=== PATIENT | male | born 1995 | race Caucasian/White ===

== ENCOUNTER 2017-04-29 01:34 | Inpatient (IN) | payer OTHER ==
[~2017-04-29] VITALS: Ht 180.3 cm; Wt 95.0 kg
[2017-04-29 03:22] LABS: MEAN CORPUSCULAR HEMOGLOBIN 30.8 pg (27.0-33.0); MEAN CORPUSCULAR HGB CONC 34.8 g/dl (32.0-36.5); MEAN CORPUSCULAR VOLUME 88.6 fl (80.0-96.0); RED CELL DISTRIBUTION WIDTH 11.9 % (11.5-14.5); WHITE BLOOD COUNT 11.5 10^3/uL (4.0-10.0)
[2017-04-29 03:55] LABS: ALBUMIN 4.4 GM/DL (3.2-5.2); ALBUMIN/GLOBULIN RATIO 1.19 (1.00-1.93); ALKALINE PHOSPHATASE 67 U/L (45-117); ALT/SGPT 28 U/L (12-78); ANION GAP 7 MEQ/L (8-16); AST/SGOT 18 U/L (15-37); BILIRUBIN,DIRECT 0.4 MG/DL (0.0-0.2); BLOOD UREA NITROGEN 12 MG/DL (7-18); CALCIUM LEVEL 9.1 MG/DL (8.5-10.1); CARBON DIOXIDE LEVEL 25 MEQ/L (21-32); CHLORIDE LEVEL 106 MEQ/L (98-107); CREATININE FOR GFR 1.07 MG/DL (0.70-1.30); GLOMERULAR FILTRATION RATE > 60.0 (>60); GLUCOSE, FASTING 79 MG/DL (70-105); POTASSIUM SERUM 3.6 MEQ/L (3.5-5.1); SODIUM LEVEL 138 MEQ/L (136-145); TOTAL PROTEIN 8.1 GM/DL (6.4-8.2)
[2017-04-29] MEDS ORDERED: traZODone 50 MG TAB PO PRN (04:45)
[2017-04-29] MEDS ORDERED: MAALOX 30 ML SUSP *UDC PO PRN (04:45)
[2017-04-29] MEDS ORDERED: MOM 30ML SUSPENSION UDC PO PRN (04:45)
[2017-04-29] MEDS ORDERED: ACETAMINOPHEN TAB 650MG DOSE (2X325MG) PO PRN (04:45)
[2017-04-29 04:46] LABS: METHADONE URINE NEGATIVE (NEGATIVE)
[2017-04-29 05:08] VITALS: BP 154/81
--- NOTE | 2017-04-29 09:00 | HPEPDOC ---
[facility] Medical History & Physical Date of Admission Apr 28, 2017 History and Physical PCP: [facility] ATTENDING: Dr. Henrique Lopez HPI:21yoM admitted to [facility] for unspecified depressive disorder, being medically examined today. No acute medical complaints today. Denies any fevers, chills, weakness, fatigue, FORMAN, CP, SOB, cough, palpitations, abdominal pain, N/V/D or changes in bowel or bladder habits. 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 ROS: As noted in HPI, otherwise 11pt ROS of systems reviewed and unremarkable. PE: GEN: 21 yoM, appears stated age. Well-nourished, well developed. No acute distress. Alert and oriented x 3. Flat affect, slow to answer questions, avoids eye contact. HEENT: Normocephalic, atraumatic. Pupils are equal, round, and reactive to light. Extraocular movements are intact. No nystagmus appreciated. Sclera are nonicteric. Conjunctiva without injection. Nose midline. Nasal turbinates without bogginess. EACs both patent BL. TMs both visualized and marr with good cone of light, no bulging or erythema. No facial asymmetry. Moist mucous membranes. Dentition fair. Pharynx pink and moist, no cobblestoning. Neck supple , trachea midline. No lymphadenopathy or thyromegaly appreciated. CHEST: Regular rate and rhythm, +S1, +S2 LUNGS: Clear to auscultation bilaterally. No wheezes, rales, or rhonchi. Breathing appears symmetric and easy. Patient is speaking in full sentences. No accessory muscle use. ABD: Flat, soft, non-tender, non-distended. +Bowel sounds throughout. No rebound or guarding. Healed appendectomy scar is noted. No costovertebral angle tenderness. EXT: Pulses 2+ bilaterally dorsalis pedis and radial. No lower extremity edema appreciated. SKIN: [place], dry, warm. Capillary refill <2sec. No rashes. NEURO: Alert and oriented x 3. Cranial nerves III-XII are intact. No focal deficits appreciated. EKG: pending A&P: 21yoM admitted to [facility] for unspecified depressive disorder 1. Psych. Plan per Psychiatry. Obtain baseline EKG to assure the safety of psychiatric medications as they can prolong the QT interval. 2. Leukocytosis. Patient is afebrile. Asymptomatic. Recheck CBC in a.m. 3. Follow up with PCP on discharge. 4. Staff member Alvaro present throughout exam. Vital Signs Vital Signs Date Time Temp Pulse Resp B/P (MAP) Pulse Ox O2 Delivery O2 Flow Rate FiO2 04/29/17 05:08 97.2 50 18 154/81 (105) 04/29/17 04:50 97 Room Air Laboratory Data Labs 24H Laboratory Tests 2 04/29/17 03:15: Nucleated Red Blood Cells % (auto) 0.0, Anion Gap 7L, Glomerular Filtration Rate > 60.0, Calcium Level 9.1, Aspartate Amino Transf (AST/SGOT) 18, Alanine Aminotransferase (ALT/SGPT) 28, Alkaline Phosphatase 67, Total Bilirubin 2.0H, Direct Bilirubin 0.4H, Total Protein 8.1, Albumin 4.4, Albumin/Globulin Ratio 1.19, Thyroid Stimulating Hormone (TSH) 1.200, Salicylates Level < 1.7L, Acetaminophen Level < 2.0L, Ethyl Alcohol Level < 0.003 04/29/17 04:06: Urine Amphetamines Screen NEGATIVE, Urine Benzodiazepines Screen NEGATIVE, Urine Opiates Screen NEGATIVE, Urine Methadone Screen NEGATIVE, Urine Barbiturates Screen NEGATIVE, Urine Phencyclidine Screen NEGATIVE, Urine Cocaine Metabolite Screen NEGATIVE, Urine Cannabinoids Screen NEGATIVE CBC/BMP Laboratory Tests 04/29/17 03:15 Red Blood Count 5.77, Mean Corpuscular Volume 88.6, Mean Corpuscular Hemoglobin 30.8, Mean Corpuscular Hemoglobin Concent 34.8, Red Cell Distribution Width 11.9 Home Medications No Active Prescriptions or Reported Meds Allergies Coded Allergies: No Known Allergies (Unverified , 04/29/17) Ivory Moran Apr 29, 2017 08:59
--- NOTE | 2017-04-29 09:26 | MHHPEPDOC ---
[facility] History & Physical History and Physical DATE OF ADMISSION: Apr 29, 2017 at 04:44 LEGAL STATUS AT ADMISSION: 9.39 CHIEF COMPLAINT: "I'm at my breaking point". 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 No combat exposure. Having SI after breakup with GF of a 6 year relationship. Also stressed by fiances, car and recent of Grandmother. Made a suicide attempt in by overdosing but was stopped by a friend. PSYCHIATRIC REVIEW OF SYSTEMS: Affective: tired Anxiety: mild Trauma: denies all. Psychosis: no symptoms illicited or reported Personally: cooperative PAST PSYCHIATRIC HISTORY: Prior Psychiatric Disorder: none Outpatient Treatment: none Suicidal/Self injurious: attempted suicide by over dose in HS but never sought help or reported it. A friend stopped him. Psychotropic Medication History: none. ALLERGIES: Please see below. FAMILY PSYCHIATRIC HISTORY: pt reports bio mom with anxiety/depression, sister with same, dad-anxiety, Step-brother age 20 ADHD. Biological mom has h/o "hard drugs". Pt denies family h/o syicide, pt unsure of other psychiatric illness such as bipolar in the family. SOCIAL HISTORY: Early Relations/development: parents when he was young, he lived with dad who remarried when pt was 11 or 12 which ended in divorce when pt was 16. He states this divorce "took a toll on me". Sibling order: Middle, 2 older and 1 younger sisters, several 1/2 siblings Paternal relationships: no contact with mother for many years but 5 years ago regular contact resumed. 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 Occupational: [employer] Legal: denies Martial: never Economic: Supports: family Abuse/trauma: denies. SUBSTANCE ABUSE HISTORY: Toxicology screen negative, pt admits to alcohol use on the weekends to include 6-7 [employer]. Sometimes is intoxicated- most likely most times is intoxicated. Denies involvement with other substances. No Detox or Rehab history. PAST MEDICAL/SURGICAL HISTORY: HPI:21yoM admitted to [facility] for unspecified depressive disorder, being medically examined today. No acute medical complaints today. Denies any fevers, chills, weakness, fatigue, FORMAN, CP, SOB, cough, palpitations, abdominal pain, N/V/D or changes in bowel or bladder habits. 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 VITAL SIGNS: Temperature 97.2 , pulse 50 , respiratory rate 18, blood pressure 154/81, pulse oximetry 97% on room air. MENTAL STATUS EXAMINATION: General appearance: Patient is a 21-year old male, who is has dark hair, medium complexion, average height and weight, dressed in hospital attire, fair eye contact, cooperative. Speech: delayed Thought processes: delayed (likely due to fatigue as awake all night with admission) Thought content: appropriate Abstract reasoning and computation: good. Description of associations: good. Description of abnormal or psychotic thoughts: none illicited, denies plan or intent to harm self presently. Judgment: good Insight: fair Orientation: well oriented x 4. Recent and remote memory: intact. Attention span and concentration: fair. Fund of knowledge: full. Mood: "anxious" & depressed, (depression 4/10 with 10 the worst) Affect: congruent. DIAGNOSES: 1. generalized anxiety disorder 2. r/o depressive disorder 3. substance use disorder 4. r/o bipolar disorder ASSESSMENT: pt has been with his GF since he was 15 yo. He is not in a state of mind where he can think about the future with another woman. He is overwhelmed as he had to spend all his money fixing his car twice which has left him "in the hole". He states that they had been having problems with their relationship and were trying to work things out. He is rather guarding during questioning and is also very tired so additional interviewing will be done when he is rested. Pt reports poor sleep, laying awake for most the night then falling asleep 2 hours before he has to get up for work. He admits to having thoughts and reports a good deal of worry, everyday over everything. He has had this behavior for a long time. He feels most of his family is struggling with anxiety to some degree. Pt reports increased energy with lack of sleep but denies mood changes, mood swings. 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 He has felt distracted in his thoughts since HS and sometimes is unable to make a decision due to all the thoughts he has going on at one time. He calls the thoughts racing. He reports concentration is 100% when he is "on the job". He admits to forgetting little things he would normally not forget when going out to the field. Pt has difficulty completing assignments when he has little to no interest in what it is he is told to do. He denies lost of interest in things he enjoys. He denies guilt and he denies feeling hopeless. He denies having previous suicidal thoughts in the weeks leading up to last night. Pt states his alcohol use can be impulsive and he will spend money on drinking that he really can't afford. He denies overspending on other things. He denies impulsive decision making or sexual activities. He reports the use of alcohol causes him to have more racing thoughts. Pt states he does not do much socially on a regular basis. He says besides the gym he spends most of the time in his room. He reports having panic attacks when feeling overwhelmed or that "things are happening too fast". He describes getting SOB, tightness in chest, rapid breathing and feeling confused. He tries breathing to relax. He will get angry and punch something when he is anxious but tries to use his gym workouts for stress mgt and anger mgt. PROBLEM LIST: 1. risk for suicide 2. ineffective coping 3. depression INITIAL TREATMENT PLAN: 1. Patient was admitted on a 9.39 2. Complete history was obtained. 3. With patients permission, family will be contacted and database will be expanded. 4. Patients medication regimen will be reviewed and changed accordingly. 5. Patient will be provided with protected environment. 6. Patient will be treated with individual, group, and milieu therapies. 7. Patient will receive supportive psych-education. 8. Discharge planning will commence immediately. 9. Outpatient follow-up treatment will be strongly recommended. 10. The initial treatment plan will focus initially on: * see problem list Plan: begin mirtazapine for sleep, evaluate for filomena, begin hydroxyzine for anxiety, prn. Will consider use of mood stabilizer if proves necessary. ESTIMATED LENGTH OF STAY: 4-6 DAYS. TIME SPENT COUNSELING AND COORDINATING INITIAL CARE: 50 minutes. Laboratory Data 24H Labs Laboratory Tests 2 04/29/17 03:15: Nucleated Red Blood Cells % (auto) 0.0, Anion Gap 7L, Glomerular Filtration Rate > 60.0, Calcium Level 9.1, Aspartate Amino Transf (AST/SGOT) 18, Alanine Aminotransferase (ALT/SGPT) 28, Alkaline Phosphatase 67, Total Bilirubin 2.0H, Direct Bilirubin 0.4H, Total Protein 8.1, Albumin 4.4, Albumin/Globulin Ratio 1.19, Thyroid Stimulating Hormone (TSH) 1.200, Salicylates Level < 1.7L, Acetaminophen Level < 2.0L, Ethyl Alcohol Level < 0.003 04/29/17 04:06: Urine Amphetamines Screen NEGATIVE, Urine Benzodiazepines Screen NEGATIVE, Urine Opiates Screen NEGATIVE, Urine Methadone Screen NEGATIVE, Urine Barbiturates Screen NEGATIVE, Urine Phencyclidine Screen NEGATIVE, Urine Cocaine Metabolite Screen NEGATIVE, Urine Cannabinoids Screen NEGATIVE CBC/BMP Laboratory Tests 04/29/17 03:15 Red Blood Count 5.77, Mean Corpuscular Volume 88.6, Mean Corpuscular Hemoglobin 30.8, Mean Corpuscular Hemoglobin Concent 34.8, Red Cell Distribution Width 11.9 Medications No Active Prescriptions or Reported Meds Allergies Coded Allergies: No Known Allergies (Unverified , 04/29/17) Sharon Wright Apr 29, 2017 09:26
--- NOTE | 2017-04-29 15:08 | ECGEPIP ---
Stationary ECG Study [facility] Test Date: 2017-04-29 Pat Name: DAVIDSON GARCIA Department: Room: [place] [address] Gender: M Trust Advisor: : [id number] Requested By: Ivory Moran Order Number: [id number] Reading MD: Melissa Bailey Measurements Intervals [place] Rate: 60 P: -17 MS: 150 QRS: 62 QRSD: 89 T: 28 QT: 389 QTc: 391 Interpretive Statements SINUS RHYTHM WITH SINUS ARRHYTHMIA EARLY REPOLARIZATION NO PRIOR Electronically Signed On 04-29-2017 15:08:35 EDT by Melissa Bailey
[2017-04-29 18:00] VITALS: BP 136/77
[2017-04-29] MEDS: hydrOXYzine 25 MG TAB PO PRN (21:51)
[2017-04-29] MEDS: MIRTAZAPINE 15 MG TAB PO SCH (21:51)
[2017-04-30 06:57] VITALS: BP 107/51
[2017-04-30 07:26] LABS: MEAN CORPUSCULAR HEMOGLOBIN 31.5 pg (27.0-33.0); MEAN CORPUSCULAR HGB CONC 35.2 g/dl (32.0-36.5); MEAN CORPUSCULAR VOLUME 89.5 fl (80.0-96.0); WHITE BLOOD COUNT 9.3 10^3/uL (4.0-10.0)
[2017-04-30 18:00] VITALS: BP 122/72
[2017-04-30] MEDS: MIRTAZAPINE 15 MG TAB PO SCH (22:11)
--- NOTE | 2017-04-30 22:12 | MHIPN ---
DATE: 04/30/2017 SUBJECTIVE: The patient today states "I haven't been feeling anything at all today." I asked him if he was suicidal which he says he was not. He says he slept well with the trazodone. However, when I asked him about his mood, that is when he told me that he had not been feeling anything today. MENTAL STATUS EXAMINATION: He is alert and oriented times three. Eye contact fair. Psychomotor activity is decreased. Eye contact is fair. No formal thought disorder noted. Mood is described as "I haven't been feeling anything today." Affect is constricted. He is denying being suicidal or homicidal. Concentration is fair. Memory is good. Insight and judgment are fair. DIAGNOSES: 1. Generalized anxiety disorder. 2. Rule out specified depressive disorder. 3. Rule out alcohol use disorder. TREATMENT PLAN: At this point, we will continue to monitor the patient for any ongoing suicidal thoughts and for stabilization of his mood. CALOS
[2017-05-01 07:04] VITALS: BP 108/56
[2017-05-01] MEDS: hydrOXYzine 25 MG TAB PO PRN (17:05)
[2017-05-01 18:00] VITALS: BP 109/55
--- NOTE | 2017-05-01 19:07 | MHIPN ---
DATE: 05/01/2017 The patient today states that he is doing fine. He is denying any suicidal ideations. He has no complaints. MENTAL STATUS EXAMINATION: He is alert and oriented times three. Eye contact is fairly good. There is no formal thought disorder noted. He says his mood is fine. Affect constricted, but appropriate. He is not psychotic, suicidal, or homicidal. Concentration fair. Memory intact. Insight and judgment fair. DIAGNOSIS: Generalized anxiety disorder. TREATMENT PLAN: At this point, we will continue to monitor the patient for continued stabilization of his mood and continued resolution of any suicidal ideations.
[2017-05-01] MEDS: MIRTAZAPINE 15 MG TAB PO SCH (22:03)
[2017-05-02 06:41] VITALS: BP 118/50
--- NOTE | 2017-05-02 09:50 | MHIPNPDOC ---
[facility] Progress Note Progress Note DATE OF SERVICE: 05/02/17 HISTORY: day 4 of admission for depression with SI VITAL SIGNS: See below. NEW TEST RESULTS: NA CURRENT MEDICATIONS: See below. MENTAL STATUS EXAMINATION: ASSESSMENT:pt declined 1:1 this morning preferring to lay in bed and sleep. MANAGEMENT PLAN: Nursing order to limit room access from 9-2:30 so pt is motivated to attend therapeutic programming. Continue medication and close observation. Command contacted and agreed to come in today. See Discharge note for more information. TIME SPENT: 15 minutes. Vital Signs Vital Signs Date Time Temp Pulse Resp B/P (MAP) Pulse Ox O2 Delivery O2 Flow Rate FiO2 05/02/17 06:41 97.9 52 16 118/50 (72) Room Air 04/29/17 04:50 97 Current Medications Current Medications Acetaminophen (Tylenol Tab) 650 mg Q6HP PRN PO HEADACHE or DISCOMFORT; Start 04/29/17 at 04:45; Stop 05/29/17 at 04:44 Al Hydrox/Mg Hydrox/Simethicone (Mylanta) 30 ml Q4HP PRN PO HEARTBURN/ INDIGESTION; Start 04/29/17 at 04:45; Stop 05/29/17 at 04:44 Home Med (Med Rec Complete!) ASDIRECTED XX ; Start 04/29/17 at 02:30; Stop at 02:30; Status DC Hydroxyzine HCl (Atarax) 25 mg Q6HP PRN PO ANXIETY Last administered on 17:05; Start 04/29/17 at 10:30; Stop 05/29/17 at 10:29 Magnesium Hydroxide (Milk Of Magnesia) 30 ml DAILYPRN PRN PO CONSTIPATION; Start 04/29/17 at 04:45; Stop 05/29/17 at 04:44 Mirtazapine (Remeron) 15 mg QHS PO Last administered on 05/01/17 22:03; Start 04/29/17 at 21:00; Stop 05/29/17 at 20:59 Trazodone HCl (Desyrel) 50 mg QHSP PRN PO INSOMNIA; Start 04/29/17 at 04:45; Stop 05/29/17 at 04:44 Allergies Coded Allergies: No Known Allergies (Unverified , 04/29/17) Sharon Wright May 02, 2017 09:50
[2017-05-02] MEDS ORDERED: MIRT15TA3 PO (10:50)
[2017-05-02] MEDS ORDERED: HYDR-3363 PO (10:50)
--- NOTE | 2017-05-02 15:49 | MHDSPDOC ---
[facility] Discharge Summary Discharge Summary DATE OF ADMISSION: Apr 29, 2017 at 04:44 DATE OF DISCHARGE: May 02, 2017 at 14:15 DISCHARGE DIAGNOSES: 1. Generalized anxiety disorder 2. Primary Insomnia 3. r/o substance use disorder REASON FOR ADMISSION: pt became distraught after the break-up of his 6 year relationship with a girl from his hometown. He had thoughts of suicide but did not act on them. CONSULTANTS INVOLVED: na TREATMENT AND PROGRESS ON THE UNIT : Pt stated he found the programming on the unit helpful in dealing with his breakup and how to think and plan for the future. He did show restraint by not attempting to harm himself and accepting help instead. HOSPITAL COURSE: Pt needed prompting to get out of bed and go to groups. He was often observed in his room sleeping. He was often social in the evenings and on the weekend. He got along well with others and there were no behavior challenges. He responded well to meds that were prescribed and mirtazapine helped his sleep immediately. He found the Atarax beneficial as a prn. DISCHARGE ASSESSMENT: KRYSTYNA meeting held today as pt was requesting to leave. He agrees to continue therapy for coping skills and intends to continue his medication as prescribed. 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 Pts alcohol use needs further assessment. MENTAL STATUS EXAMINATION ON DISCHARGE: General appearance: Patient is a 21-year old male, who is has dark hair, medium complexion, average height and weight, dressed in hospital attire, fair eye contact, cooperative. Speech: delayed Thought processes: delayed (likely due to fatigue as awake all night with admission) Thought content: appropriate Abstract reasoning and computation: good. Description of associations: good. Description of abnormal or psychotic thoughts: none illicited, denies plan or intent to harm self presently. Judgment: good Insight: fair Orientation: well oriented x 4. Recent and remote memory: intact. Attention span and concentration: fair. Fund of knowledge: full. Mood: "anxious" & depressed, (depression 4/10 with 10 the worst) Affect: congruent. MEDICATIONS ON DISCHARGE: - Mirtazapine for insomnia. - Atarax prn for anxiety. PLAN/FOLLOWUP ARRANGEMENTS: [facility] for med mgt and therapy. The amount of time spent in the coordination of care for this patient was approximately 30 minutes. Vital Signs/I&Os Vital Signs Date Time Temp Pulse Resp B/P (MAP) Pulse Ox O2 Delivery O2 Flow Rate FiO2 05/02/17 06:41 97.9 52 16 118/50 (72) Room Air 04/29/17 04:50 97 Medications Scheduled Mirtazapine (Mirtazapine) 15 Mg Tab, 15 MG PO QHS for INSOMNIA for 7 Days, #7 Scheduled PRN Hydroxyzine HCl (Hydroxyzine HCl) 25 Mg Tab, 25 MG PO Q6HP PRN for ANXIETY for 7 Days, #28 take as needed up to 4 times a day for anxiety. Allergies Coded Allergies: No Known Allergies (Unverified , 04/29/17) Sharon Wright May 02, 2017 15:49
== END 2017-05-02 14:15 | disposition home or self-care (01) | DRG 880 ==
LOC: M ED 01:34 → M ED INP 04:44 → M PSY 04:56
PROVIDERS: ADMIT Psychiatry & Neurology Psychiatry; ATTEND Psychiatry & Neurology Psychiatry
DX: F41.1 Generalized anxiety disorder (principal); G47.00 Insomnia, unspecified; F19.94 Other psychoactive substance use, unspecified with psychoactive substance-induced mood disorder; D72.829 Elevated white blood cell count, unspecified